=== PATIENT | female | born 1965 ===

== ENCOUNTER 2018-04-21 09:35 | Emergency (ER) | payer SELFPAY ==
[2018-04-21] MEDS: Sodium Chloride 0.9% 1,000 ML IV ONE (10:30)
[2018-04-21 10:52] LABS: BASO % 0.4 % (0.0-2.0); EOS # 0.1 K/uL (0.0-0.7); HEMOGLOBIN 12.1 g/dL (11.0-16.0); LYMPH # 2.5 K/uL (1.0-4.3); LYMPH % 42.3 % (20.0-40.0); MEAN CELL VOLUME 84.7 fL (81.0-99.0); MEAN CORPUSCULAR HGB CONC 33.1 g/dL (33.0-37.0); MEAN PLATELET VOLUME 7.6 fL (7.2-11.7); MONO # 0.3 K/uL (0.0-0.8); MONO % 5.9 % (0.0-10.0); NEUT # 2.9 K/uL (1.8-7.0); NEUT % 49.4 % (50.0-75.0); RBC 4.32 Mil/uL (3.80-5.20); RED CELL DISTRIBUTION WIDTH 17.1 % (11.5-14.5); WHITE BLOOD COUNT 5.9 K/uL (4.8-10.8)
[2018-04-21 11:02] LABS: SQUAMOUS EPITHIAL 14 /hpf (0-5); URINE BILIRUBIN NEGATIVE (NEGATIVE); URINE BLOOD 3+ (NEGATIVE); URINE CLARITY Hazy (Clear); URINE COLOR Red (YELLOW); URINE GLUCOSE (UA) NORMAL (Normal); URINE LEUKOCYTE ESTERASE TRACE Leu/uL (Negative); URINE PROTEIN 2+ mg/dL (NEGATIVE); URINE UROBILINOGEN NORMAL mg/dL (0.2-1.0)
[2018-04-21 11:04] LABS: HCG,QUALITATIVE URINE NEGATIVE (NEGATIVE)
[2018-04-21 11:15] LABS: ALB/GLOB RATIO 1.5 (1.0-2.1); ALBUMIN 4.8 g/dL (3.5-5.0); ALT/SGPT 13 U/L (9-52); AST/SGOT 30 U/L (14-36); BLOOD UREA NITROGEN 16 mg/dL (7-17); GFR NON-AFRICAN AMERICAN > 60
--- NOTE | 2018-04-21 13:08 | C.PDOC ---
History Of Present Illness 53yo female, comes to ER with complaints of vaginal bleeding x 20 days and also abdominal pain. Patient reports she has been using 4 pads per day. She denies any weakness, shortness of breath, and offers no additional complaints. Of note, patient states she has a history of uterine fibroids and has a scheduled follow up with her [facility] on 04/26/18 Time Seen by Provider: 04/21/18 10:09 Chief Complaint (Nursing): Female Genitourinary History Per: Patient History/Exam Limitations: no limitations Onset/Duration Of Symptoms: Days Current Symptoms Are (Timing): Still Present Abnormal Vaginal Bleeding: Yes Past Medical History Reviewed: Historical Data, Nursing Documentation, Vital Signs Vital Signs: Last Vital Signs Temp 97.9 F 04/21/18 09:52 Pulse 65 04/21/18 09:52 Resp 19 04/21/18 09:52 BP 143/81 04/21/18 09:52 Pulse Ox 100 04/21/18 09:52 - Medical History PMH: Hypothyroidism Surgical History: No Surg Hx - Social History Hx Alcohol Use: No Hx Substance Use: No - Immunization History Hx Tetanus Toxoid Vaccination: No Hx Influenza Vaccination: Yes Hx Pneumococcal Vaccination: No Review Of Systems Constitutional: Negative for: Weakness Respiratory: Negative for: Shortness of Breath Gastrointestinal: Positive for: Abdominal Pain Genitourinary: Positive for: Vaginal Bleeding. Negative for: Vaginal Discharge, Pelvic Pain Physical Exam - Physical Exam Appears: Non-toxic Skin: Normal Color Head: Atraumatic, Normacephalic Eye(s): bilateral: Normal Inspection Neck: Normal ROM, Supple Chest: Symmetrical Cardiovascular: Rhythm Regular Respiratory: Normal Breath Sounds Gastrointestinal/Abdominal: Soft, No Tenderness Back: Normal Inspection Pelvic: Other (deferred) Extremity: Normal ROM, No Deformity Neurological/Psych: Oriented x3 ED Course And Treatment - Laboratory Results Result Diagrams: 04/21/18 10:48 04/21/18 10:48 Lab Results: Total Bilirubin 0.4 mg/dL (0.2-1.3) 04/21/18 10:48 AST 30 U/L (14-36) 04/21/18 10:48 ALT 13 U/L (9-52) 04/21/18 10:48 Alkaline Phosphatase 79 U/L (38-126) 04/21/18 10:48 Total Protein 7.9 g/dL (6.3-8.3) 04/21/18 10:48 Albumin 4.8 g/dL (3.5-5.0) 04/21/18 10:48 Globulin 3.1 gm/dL (2.2-3.9) 04/21/18 10:48 Albumin/Globulin Ratio 1.5 (1.0-2.1) 04/21/18 10:48 Urine Color Red (YELLOW) 04/21/18 10:48 Urine Clarity Hazy (Clear) 04/21/18 10:48 Urine pH 8.0 (5.0-8.0) 04/21/18 10:48 Ur Specific [place] 1.019 (1.003-1.030) 04/21/18 10:48 Urine Protein 2+ mg/dL (NEGATIVE) H 04/21/18 10:48 Urine Glucose (UA) Normal mg/dL (Normal) 04/21/18 10:48 Urine Ketones Negative mg/dL (NEGATIVE) 04/21/18 10:48 Urine Blood 3+ (NEGATIVE) H 04/21/18 10:48 Urine Nitrate Negative (NEGATIVE) 04/21/18 10:48 Urine Bilirubin Negative (NEGATIVE) 04/21/18 10:48 Urine Urobilinogen Normal mg/dL (0.2-1.0) 04/21/18 10:48 Ur Leukocyte Esterase Trace Marcelina/uL (Negative) 04/21/18 10:48 Urine WBC (Auto) 15 /hpf (0-5) H 04/21/18 10:48 Urine RBC (Auto) 7526 /hpf (0-3) H 04/21/18 10:48 Ur Squamous Epith Cells 14 /hpf (0-5) H 04/21/18 10:48 Urine HCG, Qual Negative (NEGATIVE) 04/21/18 10:48 Urine HCG, Qual Negative (NEGATIVE) 04/21/18 10:48 O2 Sat by Pulse Oximetry: 100 (RA) Pulse Ox Interpretation: Normal - CT Scan/US US Transvaginal/Pelvis Other Rad Studies (CT/US): Read By Radiologist, Radiology Report Reviewed CT/US Interpretation: FINDINGS: UTERUS: Measures 12.1 x 5.8 x 8.6 cm. Anteverted. 6.5 x 5.1 x 6.8 cm mid posterior and 2.4 x 2.0 x 2.6 cm fundal fibroids, appears subserosal. ENDOMETRIUM: Measures 7 mm in diameter. CERVIX: Nabothian cysts. RIGHT OVARY: Measures 5.0 x 3.0 x 3.9 cm and contains 3.0 x 2.3 x 2.5 cm cyst. Blood flow is demonstrated. LEFT OVARY: Measures 3.9 x 3.2 x 3.1 cm and contains 2.7 x 2.2 x 2.3 cm cyst. Blood flow is demonstrated. FREE FLUID: No significant free fluid noted. OTHER FINDINGS: None. IMPRESSION: Uterine fibroids as above. Bilateral ovarian cysts. Endometrial fluid. Nabothian cysts. Progress Note: Labs, US Transvaginal ordered. Patient given IV fluids. 1319: Labs reviewed, hemoglobin within normal limits. US report reviewed, patient with uterine fibroids. Patient informed of findings and is stable for discharge home. Disposition Counseled Patient/Family Regarding: Studies Performed, Diagnosis, Need For Followup, Rx Given - Disposition Referrals: [facility] [Outside] Disposition: HOME/ ROUTINE Disposition Time: 13:19 Condition: STABLE Additional Instructions: FOLLOW UP WITH YOUR NEUROLOGICAL SURGERY TEACHER SCHEDULED ON WEDNESDAY USE PAIN MEDICATION NEEDED RETURN TO ER IF SYMPTOMS WORSEN Prescriptions: Naproxen 375 mg PO BID PRN #20 tablet PRN Reason: pain Instructions: Uterine Fibroids (DC) Forms: [employer] (Kiswahili) Print Language: UKRAINIAN - Clinical Impression Clinical Impression: Fibroids, Menorrhagia - Scribe Statement The provider has reviewed the documentation as recorded by the Tanya Cruz Provider Attestation: All medical record entries made by the Tanya were at my direction and personally dictated by me. I have reviewed the chart and agree that the record accurately reflects my personal performance of the history, physical exam, medical decision making, and the department course for this patient. I have also personally directed, reviewed, and agree with the discharge instructions and disposition.
--- NOTE | 2018-04-21 13:11 | US ---
Date of service: 04/21/2018 HISTORY: VAGINAL BLEEDING COMPARISON: None available. TECHNIQUE: Real-time transabdominal pelvic ultrasound was performed. In addition a transvaginal pelvic ultrasound was necessary to better depict pelvic anatomy. FINDINGS: UTERUS: Measures 12.1 x 5.8 x 8.6 cm. Anteverted. 6.5 x 5.1 x 6.8 cm mid posterior and 2.4 x 2.0 x 2.6 cm fundal fibroids, appears subserosal. ENDOMETRIUM: Measures 7 mm in diameter. CERVIX: Nabothian cysts. RIGHT OVARY: Measures 5.0 x 3.0 x 3.9 cm and contains 3.0 x 2.3 x 2.5 cm cyst. Blood flow is demonstrated. LEFT OVARY: Measures 3.9 x 3.2 x 3.1 cm and contains 2.7 x 2.2 x 2.3 cm cyst. Blood flow is demonstrated. FREE FLUID: No significant free fluid noted. OTHER FINDINGS: None. IMPRESSION: Uterine fibroids as above. Bilateral ovarian cysts. Endometrial fluid. Nabothian cysts.
[2018-04-21 13:24] VITALS: BP 149/91; PULSE 78; RESP 18; TEMP 98.9
[2018-04-21 13:28] VITALS: O2SAT 100
== END 2018-04-21 13:30 | disposition home or self-care (01) ==
LOC: C.ER 09:35
DX: D25.2 Subserosal leiomyoma of uterus (principal); N92.0 Excessive and frequent menstruation with regular cycle
CPT/HCPCS: 76830; 76856; 80053; 81001; 84703; 85025; 96360; 99284; J7030

== ENCOUNTER 2018-06-13 07:50 | Emergency (ER) | payer SELFPAY ==
[2018-06-13 08:06] VITALS: BMI 25.4
[2018-06-13] MEDS ORDERED: Sodium Chloride 0.9% 1,000 ML IV STA (09:10)
[2018-06-13 09:42] LABS: BASO % 0.4 % (0.0-2.0); EOS # 0.1 K/uL (0.0-0.7); EOS % 1.9 % (0.0-4.0); HEMOGLOBIN 11.8 g/dL (11.0-16.0); LYMPH # 1.3 K/uL (1.0-4.3); MEAN CELL VOLUME 84.3 fL (81.0-99.0); MEAN CORPUSCULAR HEMOGLOBIN 26.9 pg (27.0-31.0); MEAN CORPUSCULAR HGB CONC 31.9 g/dL (33.0-37.0); MEAN PLATELET VOLUME 8.4 fL (7.2-11.7); MONO # 0.4 K/uL (0.0-0.8); MONO % 6.5 % (0.0-10.0); NEUT # 4.8 K/uL (1.8-7.0); NEUT % 71.2 % (50.0-75.0); NRBC % 0.1 % (0.0-2.0); RBC 4.39 Mil/uL (3.80-5.20); RED CELL DISTRIBUTION WIDTH 17.4 % (11.5-14.5); WHITE BLOOD COUNT 6.7 K/uL (4.8-10.8)
[2018-06-13] MEDS ORDERED: Sodium Chloride 0.9% 1,000 ML ONE (09:42)
[2018-06-13 09:43] LABS: SQUAMOUS EPITHIAL 5 /hpf (0-5); URINE AMORPHOUS SEDIMENT RARE /ul (<OCC); URINE BILIRUBIN NEGATIVE (NEGATIVE); URINE BLOOD NEGATIVE (NEGATIVE); URINE CLARITY Hazy (Clear); URINE COLOR Yellow (YELLOW); URINE GLUCOSE (UA) NORMAL (Normal); URINE LEUKOCYTE ESTERASE NEG Leu/uL (Negative); URINE PROTEIN 2+ mg/dL (NEGATIVE); URINE UROBILINOGEN NORMAL mg/dL (0.2-1.0)
[2018-06-13 09:57] LABS: ALB/GLOB RATIO 1.5 (1.0-2.1); ALBUMIN 4.3 g/dL (3.5-5.0); ALT/SGPT 14 U/L (9-52); AST/SGOT 31 U/L (14-36); BLOOD UREA NITROGEN 17 mg/dL (7-17); CALCIUM 8.8 mg/dl (8.6-10.4); GFR NON-AFRICAN AMERICAN > 60; LIPASE 49 U/L (23-300)
[2018-06-13 11:07] VITALS: O2SAT 100
--- NOTE | 2018-06-13 11:47 | C.PDOC ---
History Of Present Illness 53 year old female presents to ED with complaint of nausea and vomiting since this morning. Patient states she made a shake from lupini beans and after half and hour she started to feel nauseous and vomited. Patient denies diarrhea and abdominal pain. Time Seen by Provider: 06/13/18 07:57 Chief Complaint (Nursing): GI Problem History Per: Patient History/Exam Limitations: no limitations Onset/Duration Of Symptoms: Hrs Current Symptoms Are (Timing): Still Present Context: Travel Radiation Of Pain To:: None Associated Symptoms: Nausea, Vomiting. denies: Fever, Chills, Diarrhea Exacerbating Factors: None Alleviating Factors: None Past Medical History Reviewed: Historical Data, Nursing Documentation, Vital Signs Vital Signs: Last Vital Signs Temp 97.6 F 06/13/18 10:23 Pulse 78 06/13/18 11:00 Resp 19 06/13/18 11:00 BP 108/63 06/13/18 11:00 Pulse Ox 100 06/13/18 11:00 - Medical History PMH: Hypothyroidism Surgical History: No Surg Hx Family History: States: Unknown Family Hx - Social History Hx Alcohol Use: No Hx Substance Use: No - Immunization History Hx Tetanus Toxoid Vaccination: No Hx Influenza Vaccination: Yes Hx Pneumococcal Vaccination: No Review Of Systems Constitutional: Negative for: Fever, Chills, Weakness Gastrointestinal: Positive for: Nausea, Vomiting. Negative for: Abdominal Pain, Diarrhea Neurological: Negative for: Weakness, Numbness, Dizziness Physical Exam - Physical Exam Appears: Non-toxic, No Acute Distress Skin: Normal Color, Warm, Dry Head: Atraumatic, Normacephalic Neck: Normal ROM, Supple Chest: Symmetrical, No Deformity Cardiovascular: Rhythm Regular, No Murmur Respiratory: No Accessory Muscle Use, No Rales, No Rhonchi, No Wheezing Gastrointestinal/Abdominal: Soft, No Tenderness Extremity: Bilateral: Atraumatic, Normal Color And Temperature, Normal ROM Neurological/Psych: Oriented x3, Normal Speech, Normal Cognition ED Course And Treatment - Laboratory Results Result Diagrams: 06/13/18 09:30 06/13/18 09:30 Lab Results: Total Bilirubin 0.3 mg/dL (0.2-1.3) 06/13/18 09:30 AST 31 U/L (14-36) 06/13/18 09:30 ALT 14 U/L (9-52) 06/13/18 09:30 Alkaline Phosphatase 67 U/L (38-126) 06/13/18 09:30 Total Protein 7.2 g/dL (6.3-8.3) 06/13/18 09:30 Albumin 4.3 g/dL (3.5-5.0) 06/13/18 09:30 Globulin 2.9 gm/dL (2.2-3.9) 06/13/18 09:30 Albumin/Globulin Ratio 1.5 (1.0-2.1) 06/13/18 09:30 Lipase 49 U/L (23-300) 06/13/18 09:30 Urine Color Yellow (YELLOW) 06/13/18:30 Urine Clarity Hazy (Clear) 06/13/18:30 Urine pH 8.0 (5.0-8.0) 06/13/18 09:30 Ur Specific [place] 1.021 (1.003-1.030) 06/13/18 09:30 Urine Protein 2+ mg/dL (NEGATIVE) H 06/13/18 09:30 Urine Glucose (UA) Normal mg/dL (Normal) 06/13/18 09:30 Urine Ketones Negative mg/dL (NEGATIVE) 06/13/18 09:30 Urine Blood Negative (NEGATIVE) 06/13/18 09:30 Urine Nitrate Negative (NEGATIVE) 06/13/18 09:30 Urine Bilirubin Negative (NEGATIVE) 06/13/18 09:30 Urine Urobilinogen Normal mg/dL (0.2-1.0) 06/13/18 09:30 Ur Leukocyte Esterase Neg Marcelina/uL (Negative) 06/13/18 09:30 Urine WBC (Auto) < 1 /hpf (0-5) 06/13/18 09:30 Urine RBC (Auto) 3 /hpf (0-3) 06/13/18 09:30 Ur Squamous Epith Cells 5 /hpf (0-5) 06/13/18:30 Amorphous Sediment Rare /ul (<OCC) H 06/13/18 09:30 O2 Sat by Pulse Oximetry: 100 (in RA) Progress Note: Patient given IV fuids. Protonix IVP, and Zofran IVP. CBC, CMP, and lipase ordered for patient. Patient tolerated PO intake. Re-evaluation. Patient feels better. Discussed plan with patient who expresses understanding. All questions answered and there is agreement with the plan to discharge home with instructions. Patient stable for discharge. Return if symptoms persist or worsen. Disposition - Disposition Disposition: HOME/ ROUTINE Disposition Time: 11:45 Condition: IMPROVED Additional Instructions: Follow up with your PMD. Return to ED if feel worse. Prescriptions: Ondansetron ODT [Zofran ODT] 1 odt PO BID PRN #6 odt PRN Reason: Nausea/Vomiting Instructions: Nausea and Vomiting, Adult (DC) Forms: [employer] (Mongolian) Print Language: KHMER - Clinical Impression Clinical Impression: Vomiting - PA / [employer] / Resident Statement MD/DO has reviewed & agrees with the documentation as recorded. (Barbara Babin) - Scribe Statement The provider has reviewed the documentation as recorded by the Scribe (Barbara Babin) All medical record entries made by the Scribe were at my direction and personally dictated by me. I have reviewed the chart and agree that the record accurately reflects my personal performance of the history, physical exam, medical decision making, and the department course for this patient. I have also personally directed, reviewed, and agree with the discharge instructions and disposition.
[2018-06-13 12:06] VITALS: BP 110/65; PULSE 79; RESP 20; TEMP 98
--- NOTE | 2018-06-14 12:45 | CARD ---
APPROVED REPORT Date of service: 06/13/2018 EKG Measurement Heart [id number] <Conclusion> Normal sinus rhythm Cannot rule out Anterior infarct, age undetermined Abnormal ECG
== END 2018-06-13 12:10 | disposition home or self-care (01) ==
LOC: C.ER 07:50
DX: R11.10 Vomiting, unspecified (principal)
CPT/HCPCS: 80053; 81001; 83690; 85025; 93005; 96361; 96374; 96375; 99285; C9113; J2405; J7030